=== PATIENT | male | born 1940 | race Caucasian/White ===

== ENCOUNTER 2016-08-04 15:21 | Inpatient (IN) | payer MEDICARE ==
[~2016-08-04] VITALS: Ht 162.6 cm; Wt 79.4 kg
--- NOTE | 2016-08-04 15:30 | NUR ---
aaox3, BBRA FROM STREETS PT ALTERED COVERED IN FECES. Placed on monitor. Resp is even and unlabored with NAD noted. Skin is warm and dry. Dr Cary at BS for eval.
[2016-08-04] MEDS ORDERED: IV NS 0.9% 2,000 ML ONE (15:44)
[2016-08-04] MEDS ORDERED: IV SET PRIMARY 1 EA INFUS.SET MC ONE (15:44)
--- NOTE | 2016-08-04 15:50 | NUR ---
Cleaned the Patient at BS, patient c/o left thigh and hip pain giving him bed bath. Patient unable to move his left leg. Dr Cary made aware.
[2016-08-04] MEDS ORDERED: IV NS 0.9% 1,000 ML BAG IV ONE (16:00)
[2016-08-04 16:08] LABS: HEMATOCRIT 35 % (39-51); HEMOGLOBIN 11.4 g/dL (13.5-17.5); LYMPHOCYTES # (AUTO) 0.4 /CMM (0.8-4.8); LYMPHOCYTES % (AUTO) 1.9 % (20.0-44.0); MEAN CORPUSCULAR HEMOGLOBIN 30 PG (26.0-33.0); MEAN CORPUSCULAR HGB CONC 33 g/dl (31.0-36.0); MEAN CORPUSCULAR VOLUME 89 fL (80-96); MONOCYTES # (AUTO) 1.3 /CMM (0.1-1.30); MONOCYTES % (AUTO) 5.5 % (2.0-12.0); NEUTROPHILS # (AUTO) 21.3 /CMM (1.8-8.9); NEUTROPHILS % (AUTO) 92.6 % (43.0-81.0); PLATELET COUNT (AUTO) 247 /CMM (150-450); RDW COEFFICIENT OF VARIATION 14.3 (11.5-15.0); RED BLOOD CELL COUNT(AUTO) 3.87 MIL/uL (4.5-6.0)
[2016-08-04 16:09] LABS: CALCIUM, SERUM 8.3 mg/dL (8.5-10.1); CARBON DIOXIDE 21 mmol/L (21-32); CHLORIDE 103 mmol/L (98-107); CREATININE 2.4 mg/dL (0.6-1.3); GLUCOSE 169 mg/dL (74-106); POTASSIUM 3.4 mmol/L (3.5-5.1); SODIUM SERUM 141 mmol/L (136-145); UREA NITROGEN, BLOOD 27 mg/dL (7-18)
[2016-08-04 16:15] LABS: ALANINE AMINOTRANSFERASE 10 U/L (12-78); ALBUMIN 2.7 g/dL (3.4-5.0); ALKALINE PHOSPHATASE 91 U/L (46-116); ASPARTATE AMINOTRANSFERASE 18 U/L (15-37); BILIRUBIN,DIRECT 0.2 mg/dL (0.0-0.2); BILIRUBIN,TOTAL 0.8 mg/dL (0.2-1.0); TOTAL PROTEIN, SERUM 6.6 g/dL (6.4-8.2)
[2016-08-04 16:16] LABS: INR 1.09 (0.87-1.13); PROTHROMBIN TIME 11.4 SECS (9.5-12.7)
[2016-08-04 16:17] LABS: TROPONIN I 0.098 ng/mL (0.00-0.056)
[2016-08-04 16:26] LABS: BAND % (MANUAL) 8 % (0.0-5.0); LYMPHOCYTES % (MANUAL) 4 % (16-48); MONOCYTES % (MANUAL) 2 % (0-11.0); NEUTROPHILS % (MANUAL) 86 (42-76); PLATELET ESTIMATE ADEQUATE
[2016-08-04] MEDS ORDERED: PERMETHRIN 5% CRM 60 GM TUBE TP ONE ×2 (16:30)
--- NOTE | 2016-08-04 16:30 | NUR ---
Patient is resting comfortably in bed with eyes closed. Easily aroused. VSS
[2016-08-04 16:45] LABS: SERUM AMMONIA 14 umol/L (11-32)
[2016-08-04 16:46] LABS: LACTIC ACID 7.3 mmol/L (0.4-2.0)
[2016-08-04 16:50] LABS: ALCOHOL, BLOOD < 3 mg/dL (0-0)
[2016-08-04 16:51] LABS: ACETAMINOPHEN 0 ug/ml (10-30)
[2016-08-04] MEDS ORDERED: PIPERACILLIN /TAZOBACTAM 2.25 G in IV D5W 50 ML IV ONE (17:00)
[2016-08-04] MEDS ORDERED: VANCOMYCIN 1 GM in IV D5W 250 ML IV ONE (17:00)
[2016-08-04 17:01] LABS: THYROID STIMULATING HORMONE 0.771 uIU/mL (0.358-3.74)
[2016-08-04] MEDS ORDERED: IV SET PRIMARY PUMP SET 1 EA INFUS.SET MC ONE ×2 (17:15→23:01)
--- NOTE | 2016-08-04 17:24 | NUR ---
CALLED NURSING SUP. FOR [facility] BED, INFORMED HER PT HAS HEAD LICE
--- NOTE | 2016-08-04 18:00 | NUR ---
SEPTIC PROTOCOL FLUID CHALLENGE (30ML/KG) NOT FOLLOWED. PER DR PINA, PATIENT HAS RENAL PROBLEM AND HE DOESN'T WANT TO OVERLOAD WITH FLUIDS.
--- NOTE | 2016-08-04 18:02 | NUR ---
NO FLUID RE-ASSESSMENT --- SEPTIC PROTOCOL FLUID CHALLENGE NOT DONE.
--- NOTE | 2016-08-04 18:26 | NUR ---
SHERON CALLED, SIM LOZOYA ORAL HYGIENIST, TRANSFERRED TO
--- NOTE | 2016-08-04 18:27 | NUR ---
JULIUS PAGED, DR.SAM Mayer NEUROPATHOLOGIST
--- NOTE | 2016-08-04 18:42 | NUR ---
[facility] 108
--- NOTE | 2016-08-04 19:02 | NUR ---
JULIUS HAMMONDS, STEVEN TORO GUMMED TAPE PRESS OPERATOR
--- NOTE | 2016-08-04 19:36 | NUR ---
REPORT GIVEN TO SHEREE ARGUETA FOR [facility]
--- NOTE | 2016-08-04 19:38 | NUR ---
[facility] RN NOTES RECEIVED REPORT FROM KATIA
[2016-08-04 20:00] VITALS: BP 78/37
--- NOTE | 2016-08-04 20:00 | NUR ---
[place] RN INITIAL NOTES RECEIVED PATIENT AWAKE A/OX2 VIA GURNEY. RESPIRATIONS EVEN AND UNLABORED. NOTED WITH EXPIRATORY WHEEZES. ON ROOM AIR. SPO2 92% ON ROOM AIR, 2LPMO2 VIA NC PLACED. PER REPORT GIVEN PERMETHRIN, 2LNS, VANCO, AND ZOSYN. PER REPORT MANY LICE WAS REMOVED FROM PATIENTS HEAD. PATIENT C/O SEVERE PAIN OR LEFT LEG WHEN MOVED. PATIENT GUARDING LEFT LEG. PER PATIENT HE HAS NO KNOWN DRUG ALLERGIES AND DOES NOT TAKE ANY MEDICATIONS. PATIENT IS HOMELESS AND HAS NO FAMILY. PATIENT HAS NO KNOWN PAST MEDICAL HISTORY. NO RECENT IMMUNIZATIONS. ASKED PATIENT REASON FOR VISIT, PATIENT STATED "MY LEGS ARE TOO WEAK, I KEPT FALLING." PATIENT APPEARS TO BE HARD OF HEARING. ASKED PATIENT FOR CODE STATUS, PATIENT WISHES TO BE FULL CODE. BODY ASSESSMENT DONE. PICTURES TAKEN. WITH LFA, RFA, AND LAC 18G PATENT AND INTACT. ON TELE MONITOR AFIB 105. ORIENTED PATIENT TO ROOM AND LOCATION. ORIENTED PATIENT TO CALL LIGHT SYSTEM, VERBALIZED UNDERSTANDING. SIDE RAILS UP AND LOCKED. BED KEPT AT LOWEST POSITION. CALL LIGHT KEPT WITHIN EASY REACH . WILL CONTINUE TO MONITOR.
--- NOTE | 2016-08-04 20:05 | NUR ---
TRANSPORTED PT TO TELE BED
--- NOTE | 2016-08-04 21:00 | NUR ---
BP RECHECKED 101/50, WILL CONTINUE TO MONITOR.
--- NOTE | 2016-08-04 22:33 | NUR ---
STEVEN TORO NP AT BEDSIDE.
[2016-08-04] MEDS ORDERED: IV NS 0.9% 1,000 ML ONE (22:59)
[2016-08-04] MEDS ORDERED: Z GUARD REMEDY 2 OZ OINT TP PRN (23:00)
[2016-08-04] MEDS ORDERED: ONDANSETRON HCL/PF 4 MG/2 ML VIAL IVP PRN (23:00)
[2016-08-04] MEDS ORDERED: ZOLPIDEM TARTRATE 5 MG TABLET PO PRN (23:00)
[2016-08-04] MEDS ORDERED: ACETAMINOPHEN 325 MG TABLET PO PRN (23:00)
[2016-08-04] MEDS ORDERED: MAG HYDROX/AL HYDROX/SIMETH 30 ML UDC PO PRN (23:00)
[2016-08-04] MEDS ORDERED: MAGNESIUM HYDROXIDE 30 ML UDC PO PRN (23:00)
[2016-08-04] MEDS ORDERED: POTASSIUM CHLORIDE 20 MEQ TAB.PRT.SR PO ONE ×2 (23:00→23:06)
[2016-08-04] MEDS ORDERED: HEPARIN SODIUM, PORCINE 5000 UNITS/1 ML VIAL ONE (23:07)
[2016-08-04] MEDS: HEPARIN SODIUM, PORCINE 5000 UNITS/1 ML VIAL SQ SCH (23:11)
[2016-08-04] MEDS: IV NS 0.9% 1,000 ML IV PRN (23:13)
[2016-08-05] VITALS: BP 114/55
[2016-08-05 04:00] VITALS: BP 111/76
[2016-08-05 05:05] LABS: HEMATOCRIT 31 % (39-51); HEMOGLOBIN 10.3 g/dL (13.5-17.5); LYMPHOCYTES # (AUTO) 0.7 /CMM (0.8-4.8); LYMPHOCYTES % (AUTO) 5.1 % (20.0-44.0); MEAN CORPUSCULAR HEMOGLOBIN 30 PG (26.0-33.0); MEAN CORPUSCULAR HGB CONC 33 g/dl (31.0-36.0); MEAN CORPUSCULAR VOLUME 89 fL (80-96); MONOCYTES # (AUTO) 0.7 /CMM (0.1-1.30); NEUTROPHILS # (AUTO) 12.9 /CMM (1.8-8.9); NEUTROPHILS % (AUTO) 89.9 % (43.0-81.0); PLATELET COUNT (AUTO) 217 /CMM (150-450); RDW COEFFICIENT OF VARIATION 14.6 (11.5-15.0); RED BLOOD CELL COUNT(AUTO) 3.46 MIL/uL (4.5-6.0); WHITE BLOOD COUNT (AUTO) 14.4 K/uL (4.3-11.0)
[2016-08-05 05:30] LABS: CALCIUM, SERUM 7.7 mg/dL (8.5-10.1); CREATININE 1.5 mg/dL (0.6-1.3); MAGNESIUM 1.7 mg/dL (1.8-2.4); PHOSPHORUS 3.8 mg/dL (2.5-4.9)
--- NOTE | 2016-08-05 05:39 | NUR ---
GAVE PATIENT FULL BODY BATH, NOTED WITH HEAD LICE, WASHED AND COMBED HAIR. TOLERATED WELL. URINE CULTURE OBTAINED VIA STRAIGHT CATH TOLERATED WELL. WILL CONTINUE TO MONITOR.
[2016-08-05] MEDS ORDERED: IV NS 0.9% 1,000 ML ONE (06:30)
--- NOTE | 2016-08-05 07:00 | NUR ---
[facility] RN INITIAL NOTES Received pt in bed sleeping. no s/s of distress.no c/o pain .i.v cdi and patent.safety measures in place.bed in low and locked position.will continue to monitor for changes for continuity of care.
[2016-08-05 07:35] LABS: APPEARANCE,URINE CLEAR (CLEAR); BILIRUBIN,URINE NEGATIVE (NEGATIVE); BLOOD, URINE TRACE Ery/uL (NEGATIVE); COLOR,URINE YELLOW (YELLOW); KETONES,URINE TRACE (NEGATIVE); LEUKOCYTE ESTERASE ,URINE NEGATIVE (NEGATIVE); NITRITE, URINE NEGATIVE (NEGATIVE); PROTEIN,URINE 1+ mg/dl (NEGATIVE); UGLUCOSE NEGATIVE (NEGATIVE); UROBILINOGEN,URINE 0.2 EU/dL (0.2)
[2016-08-05 07:44] LABS: ADD URINE CULTURE NO; BACTERIA,URINE Few /HPF (None Seen); HYALINE CASTS, URINE Few /LPF (None Seen); SQUAMOUS EPITHELIAL CELL,UR Rare /HPF (None Seen); WBC,URINE 0-2 /HPF (0-3)
--- NOTE | 2016-08-05 07:44 | NUR ---
[place] RN CLOSING NOTES ALL NEEDS ANTICIPATED AND MET. KEPT CLEAN AND DRY. DENIES SOB. DENIES ANY PAIN OR DISCOMFORT. ISOLATION PRECAUTIONS OBSERVED. IVF RUNNING. AFEBRILE. SIDE RAILS UP AND LOCKED. BED KEPT AT LOWEST POSITION. CALL LIGHT KEPT WITHIN EASY REACH. CONTINUITY OF CARE ENDORSED TO AM NURSE.
[2016-08-05 07:45] LABS: MUCUS,URINE Rare /LPF (None Seen)
[2016-08-05 08:00] VITALS: BP 135/56
--- NOTE | 2016-08-05 08:27 | NUR ---
WOUND CARE CONSULT: PT PRESENTS WITH MULTIPLE DRY LESIONS AND SCRATCHES. DEBRIS NOTED IN HAIR. SWELLING NOTED TO LEFT HIP AREA. REDNESS NOTED TO LOWER LEGS. RECOMMENDATIONS MADE FOR SKIN PROTECTION. DISCUSSED WITH NURSING STAFF. DEFER TO MD FOR DRY LESIONS ON FACE AND HEAD. PT ON ISOFLEX MATTRESS. PT TO BE TURNED AND REPOSITIONED EVERY 2 HRS PT CONDITION PERMITS, HEELS FLOATED. LIMITED ASSESSMENT TODAY DUE TO PT UNABLE TO TURN TO SIDE (REFUSED). NA SCORE IS 13. MD IN AGREEMENT WITH PLAN OF CARE. Addendum: 08/05/16 at 0831 by CAROLINA ESTRADA WNDNU Amended: Links added.
[2016-08-05] MEDS ORDERED: FEE PK DOSING 1 MIN EA MC ONE (09:13)
[2016-08-05] MEDS: PIPERACILLIN /TAZOBACTAM 3.375 G in IV D5W 50 ML IV SCH ×3 (09:15→21:14)
[2016-08-05] MEDS ORDERED: SECONDARY IV SET 1 EA INFUS.SET MC ONE ×3 (09:17→15:51)
[2016-08-05] MEDS: HEPARIN SODIUM, PORCINE 5000 UNITS/1 ML VIAL SQ SCH ×2 (09:19→20:50)
[2016-08-05] MEDS: PANTOPRAZOLE 40 MG TABLET.DR PO SCH (09:26)
[2016-08-05] MEDS: VANCOMYCIN 1 GM in IV D5W 250 ML IV SCH (11:15)
[2016-08-05] MEDS: Magnesium 1GM/D5W 100ML PREMIX 100 ML IV SCH ×2 (11:15→12:09)
[2016-08-05 13:34] VITALS: BP 122/56
--- NOTE | 2016-08-05 14:18 | NUR ---
YESSICA contacted missing persons and left a voicemail message requesting a call back. Addendum: 08/05/16 at 1519 by SUNNY JUAN YESSICA called missing persons and spoke to Officer Yomi who informed YESSICA that pt. has not been listed as missing and no missing persons has been filed on pt. YESSICA updated HEMALATHA De Anda with the aforementioned information.
[2016-08-05 20:00] VITALS: BP 97/50
--- NOTE | 2016-08-05 20:50 | NUR ---
RN NOTES: PAGED HEMALATHA HARRIS REGARDING THE PATIENT'S DOSE OF HEPARIN OF 5000 UNIT S/C. AND THE SURGERY THAT IS PLANNED FOR THE PATIENT TOMORROW. LEONARD ORDERED TO HOLD THE DOSE. WILL CARRY OUT THE ORDER AND CONTINUE TO MONITOR.
[2016-08-05] MEDS: IV NS 0.9% 1,000 ML IV PRN (21:14)
[2016-08-06] VITALS (11 sets, daily range): BP systolic 104–147; BP diastolic 53–76
[2016-08-06] MEDS: PIPERACILLIN /TAZOBACTAM 3.375 G in IV D5W 50 ML IV SCH ×5 (02:50→22:01)
[2016-08-06] MEDS: VANCOMYCIN 1 GM in IV D5W 250 ML IV SCH (05:32)
[2016-08-06 06:31] LABS: BASOPHILS % (AUTO) 0.2 % (0.0-2.0); EOSINOPHILS # (AUTO) 0.1 /CMM (0.0-0.7); EOSINOPHILS % (AUTO) 1.8 % (0.0-6.0); HEMATOCRIT 29 % (39-51); HEMOGLOBIN 9.6 g/dL (13.5-17.5); LYMPHOCYTES # (AUTO) 0.8 /CMM (0.8-4.8); LYMPHOCYTES % (AUTO) 9.3 % (20.0-44.0); MEAN CORPUSCULAR HEMOGLOBIN 30 PG (26.0-33.0); MEAN CORPUSCULAR HGB CONC 33 g/dl (31.0-36.0); MEAN CORPUSCULAR VOLUME 90 fL (80-96); MONOCYTES # (AUTO) 0.5 /CMM (0.1-1.30); MONOCYTES % (AUTO) 6.6 % (2.0-12.0); NEUTROPHILS # (AUTO) 6.8 /CMM (1.8-8.9); NEUTROPHILS % (AUTO) 82.1 % (43.0-81.0); PLATELET COUNT (AUTO) 214 /CMM (150-450); RDW COEFFICIENT OF VARIATION 14.6 (11.5-15.0); RED BLOOD CELL COUNT(AUTO) 3.22 MIL/uL (4.5-6.0); WHITE BLOOD COUNT (AUTO) 8.3 K/uL (4.3-11.0)
[2016-08-06 06:47] LABS: TROPONIN I 0.108 ng/mL (0.00-0.056)
[2016-08-06 06:52] LABS: BILIRUBIN,TOTAL 0.3 mg/dL (0.2-1.0); CREATININE 1.1 mg/dL (0.6-1.3); MAGNESIUM 1.9 mg/dL (1.8-2.4); PHOSPHORUS 2.7 mg/dL (2.5-4.9); POTASSIUM 3.6 mmol/L (3.5-5.1); TOTAL PROTEIN, SERUM 5.5 g/dL (6.4-8.2)
[2016-08-06] MEDS: PANTOPRAZOLE 40 MG TABLET.DR PO SCH (08:30)
[2016-08-06] MEDS ORDERED: SECONDARY IV SET 1 EA INFUS.SET MC ONE ×3 (08:56→20:38)
[2016-08-06] MEDS: HEPARIN SODIUM, PORCINE 5000 UNITS/1 ML VIAL SQ SCH ×2 (09:00→22:07)
--- NOTE | 2016-08-06 09:30 | NUR ---
MS RN NOTE Pt resting in bed. AOx2. NS running at 125ml/hr in left forearm. Ate breakfast. NPO starting at 0830 and held heparin for possible surgery today. Scabs left shoulder. BLE redness. All needs met. Will cont to monitor. Addendum: 08/06/16 at 1823 by VAL BORRERO RN Pt refused turning due to pain in left hip.
[2016-08-06 12:01] LABS: IRON, SERUM 11 ug/dl (50-175); TOTAL IRON BINDING CAPACITY 222 ug/dl (250-450)
[2016-08-06 12:09] LABS: FERRITIN 63 ng/mL (8-388)
[2016-08-06] MEDS: POTASSIUM CL. PREMIX PERIPHER. 50 ML IV SCH ×2 (12:31→14:07)
[2016-08-06] MEDS ORDERED: BUPIVACAINE 0.5 % PF 150 MG/30 ML VIAL ONE (16:11)
[2016-08-06] MEDS ORDERED: BACITRACIN 50000 UNITS/VIAL ONE (16:11)
--- NOTE | 2016-08-06 16:39 | NUR ---
LEFT FOR OR Pt left for OR around 1630 for left hip ORIF. Pt pulled out right forearm and left forearm IV sites, left AC site infiltrated. New one placed right wrist #22g, but pt left for OR before being able to run zosyn into new IV site.
[2016-08-06] MEDS ORDERED: MIDAZOLAM HCL 2 MG/2ML VIAL ONE (18:00)
[2016-08-06] MEDS ORDERED: FENTANYL PF 100MCG/2ML AMPUL ONE (18:00)
[2016-08-06] MEDS ORDERED: ANESTHESIA TRAY IN PYXIS 1 EA TRAY MC ONE (19:11)
[2016-08-06] MEDS ORDERED: IV NS 0.9% 1,000 ML ONE (19:30)
--- NOTE | 2016-08-06 19:50 | NUR ---
MS RN POST OP NOTES: PATIENT BROUGHT BACK TO MS FLOOR VIA GURNEY, ON O2 AT 2 LPM VIA NC. BREATHING EVEN AND UNLABORED, NOTED OCCASIONAL NON PRODUCTIVE COUGH. BREATH SOUNDS CLEAR AT UPPER LUNG CLEMENT, SLIGHTLY DIMINISHED OVER LOWER CLEMENT. PATIENT IS AOX2, ABLE TO FOLLOW COMMANDS. APPEARS CALM AND IN NO DISTRESS. DENIES PAIN AT THIS TIME, ONLY ASKED FOR SOMETHING TO EAT. PIV ACCESS OVER R WIRST G 22 INTACT AND PATENT TO FLUSH. LEFT HJIP NOTED TO HAVE 2 FOAM DRESSINGS, CLEAN AND INTACT. PROVIDED FOR COMFORT AND SAFETY. WILL CONT TO MONITOR.
[2016-08-06] MEDS ORDERED: IV SET PRIMARY PUMP SET 1 EA INFUS.SET MC ONE (20:38)
[2016-08-06] MEDS: CEFAZOLIN 2 GM in IV D5W 50 ML IV SCH (20:47)
[2016-08-06] MEDS: IV NS 0.9% 1,000 ML IV PRN (20:47)
--- NOTE | 2016-08-06 22:00 | NUR ---
RN NOTES: ASKED INFORMATION SERVICES ASSISTANT SOUND EDITOR, STEVEN TORO, IF HEPARIN 5000 UNITS SQ THAT IS SCHEDULED FOR 2100 PM SHOULD BE HELD, PATIENT HAS JUST BEEN TRANSFERRED BACK TO UNIT POST OP FOR ORIF OF LEFT HIP. PER INFORMATION SERVICES ASSISTANT, HEPARIN MUST BE CONTINUED. NOTED AND CARRIED OUT. WILL CONT TO MONITOR.
[2016-08-07] VITALS (12 sets, daily range): BP systolic 107–133; BP diastolic 53–78
--- NOTE | 2016-08-07 00:30 | NUR ---
RN NOTES: VANCO TROUGH AT 9 ONLY, ADMINISTERED VANCOMYCIN 1 GM IV SCHEDULED. WILL CONT TO MONITOR.
[2016-08-07] MEDS: VANCOMYCIN 1 GM in IV D5W 250 ML IV SCH ×2 (00:39→12:00)
--- NOTE | 2016-08-07 00:45 | NUR ---
RN NOTES: PATIENT COMPLAINING OF 4/10 PAIN OVER L HIP AND ITCHING OVER LEGS. STEVEN TORO NP MADE AWARE, ORDERED FOR BENADRYL 25 MG PO Q 6 HRS PRN. ORDER NOTED AND CARRIED OUT. WILL CONT TO MONITOR.
[2016-08-07] MEDS ORDERED: diphenhydrAMINE HCL 25 MG CAPSULE ONE (00:47)
[2016-08-07] MEDS: HYDROCODONE/APAP 5/325MG 1 EACH TABLET PO PRN ×4 (00:56→20:41)
[2016-08-07] MEDS ORDERED: diphenhydrAMINE HCL ELIX 25 MG/10 ML UDC PO PRN (01:00)
[2016-08-07] MEDS: diphenhydrAMINE HCL 25 MG CAPSULE PO PRN (01:06)
[2016-08-07] MEDS: PIPERACILLIN /TAZOBACTAM 3.375 G in IV D5W 50 ML IV SCH ×4 (03:04→20:41)
[2016-08-07] MEDS: CEFAZOLIN 2 GM in IV D5W 50 ML IV SCH ×2 (04:00→12:00)
[2016-08-07 06:21] LABS: HEMATOCRIT 26 % (39-51); HEMOGLOBIN 8.2 g/dL (13.5-17.5); LYMPHOCYTES # (AUTO) 0.4 /CMM (0.8-4.8); LYMPHOCYTES % (AUTO) 6.5 % (20.0-44.0); MEAN CORPUSCULAR HEMOGLOBIN 29 PG (26.0-33.0); MEAN CORPUSCULAR HGB CONC 32 g/dl (31.0-36.0); MEAN CORPUSCULAR VOLUME 90 fL (80-96); MONOCYTES # (AUTO) 0.3 /CMM (0.1-1.30); MONOCYTES % (AUTO) 5.5 % (2.0-12.0); PLATELET COUNT (AUTO) 209 /CMM (150-450); RDW COEFFICIENT OF VARIATION 14.1 (11.5-15.0); RED BLOOD CELL COUNT(AUTO) 2.83 MIL/uL (4.5-6.0); WHITE BLOOD COUNT (AUTO) 5.7 K/uL (4.3-11.0)
--- NOTE | 2016-08-07 06:30 | NUR ---
MS RN CLOSING NOTES: PATIENT IN BED, AOX2, ON O2 AT 2 LPM VIA NC. BREATHING EVEN AND UNLABORED. APPEARS CALM AND IN NO DISTRESS. PIV ACCESS OVER R WRIST G 22 INTACT AND PATENT, INFUSING WELL WITH NS RUNNING AT 125 ML/HR, NO SIGNS OF INFILTRATION NOTED. DUE MEDS GIVEN. MORNING CARE RENDERED. REINFORCED DRESSING OVER LEFT HIP SMALLER (INFERIOR) DRESSING WAS SATURATED WITH BLOOD. PROVIDED FOR COMFORT AND SAFETY. ON CONTACT ISOLATION FOR SCABIES/ LICE. NO ACUTE CHANGE IN CONDITION NOTED THROUGH SHIFT. WILL ENDORSE TO AM RN FOR ALTA.
[2016-08-07 06:39] LABS: ALBUMIN 1.9 g/dL (3.4-5.0); BILIRUBIN,TOTAL 0.2 mg/dL (0.2-1.0); CALCIUM, SERUM 7.8 mg/dL (8.5-10.1); CREATININE 1.1 mg/dL (0.6-1.3); MAGNESIUM 1.7 mg/dL (1.8-2.4); PHOSPHORUS 3.4 mg/dL (2.5-4.9); POTASSIUM 3.9 mmol/L (3.5-5.1); TOTAL PROTEIN, SERUM 5.3 g/dL (6.4-8.2)
[2016-08-07] MEDS: PANTOPRAZOLE 40 MG TABLET.DR PO SCH (09:31)
[2016-08-07] MEDS: HEPARIN SODIUM, PORCINE 5000 UNITS/1 ML VIAL SQ SCH (09:33)
[2016-08-07] MEDS: IV NS 0.9% 1,000 ML IV PRN (09:46)
[2016-08-07] MEDS ORDERED: SEVOFLURANE 250 ML BOTTLE IH ONE (09:50)
[2016-08-07] MEDS ORDERED: DESFLURANE 240 ML BOTTLE IH ONE (09:50)
[2016-08-07] MEDS ORDERED: Magnesium 1GM/D5W 100ML PREMIX 100 ML IV SCH ×2 (10:00→14:30)
--- NOTE | 2016-08-07 16:50 | NUR ---
patient s heplock in right hand was infiltrated from awake overnight monitor , ice bags applied and unable to hang remaing ivp antibiotics until line in 2 units of prbc s ordered for hgb off 8.2
--- NOTE | 2016-08-07 17:51 | NUR ---
dr. TERAN IN TOO SEE PATIENT AND ORDERED DUE TO UNABILITY TO FIND PERIPERAL VEIN, DR SAINI ORDEREDA MIDLINE INSERTION DUE TO MULTIPLE ABT AND BLOOD TO BE GIVEN, c SMOOTH NURSING CAR SALESPERSON OF THE NEED FOR MIDLINE INSERTION NEEDEDSO WAITING FOR RESPONSE.
--- NOTE | 2016-08-07 18:30 | NUR ---
PT S DRESSING DRY ON BOTTOM PART OF LEFT HIP AND HAS A SMALL STAIN DRIED OF DARK RED DRAINAGE. MEDICATED FOR PAIN WITH NORCO TIMES 1 WITH GOOD EFFECT, PARALEGAL INTERNSHIP STSTED PT REFUSED TO BE CLEANED UP AT END OF SHIFT .SIDE RAILS UP WITH CALL LIGHT IN REACH
--- NOTE | 2016-08-07 20:14 | NUR ---
RN NOTES: NEW MIDLINE IS ESTABLISHED IN LEFT ARM GAUGE 20. PATENT AND INTACT. NEW IV ACCESS IS ESTABLISHED IN LEFT WRIST GAUGE 22. PATENT AND INTACT.
--- NOTE | 2016-08-07 20:59 | NUR ---
RN NOTES: PATIENT'S DRESSING ON THE LEFT HIP IS DRY AND PART PF THE DRESSING ON THE BOTTOM HAS A SMALL STAIN DRIED OF DARK RED DRAINAGE. WILL CONTINUE TO MONITOR.
[2016-08-07] MEDS: ENOXAPARIN SODIUM 40 MG/0.4 ML DISP.SYRIN SQ SCH (21:13)
[2016-08-07] MEDS ORDERED: BLOOD IV SET 1 EA INFUS.SET MC ONE (21:26)
[2016-08-07] MEDS ORDERED: IV NS 0.9% 250 ML IV ONE (21:27)
--- NOTE | 2016-08-07 21:58 | NUR ---
RN NOTES: 2149: ONE UNIT OF BLOOD IS STARTED. VARIFIED WITH CHARGE NURSE ORDERED. Addendum: 08/07/16 at 2256 by RICCO MORENO RN RN NOTES: 2149: ONE UNIT OF BLOOD IS STARTED. VARIFIED WITH CHARGE NURSE ORDERED. PATIENT IS IN A STABLE CONDITION. NO DISTRESS OR COMPLICATIONS NOTED. WILL CONTINUE TO MONITOR.
[2016-08-08 00:35] VITALS: BP 127/75
--- NOTE | 2016-08-08 00:37 | NUR ---
RN NOTES: 0035: BLOOD TRANSFUSION IS COMPLETED. NO BLOOD TRANSFUSION REACTIONS. PATIENT IS IN A STABLE CONDITION. NO COMPLAINS OF PAIN. WILL CONTINUE TO MONITOR.
[2016-08-08] MEDS: VANCOMYCIN 1 GM in IV D5W 250 ML IV SCH ×2 (01:23→15:08)
[2016-08-08] MEDS: PIPERACILLIN /TAZOBACTAM 3.375 G in IV D5W 50 ML IV SCH ×4 (02:58→20:14)
[2016-08-08] MEDS: HYDROCODONE/APAP 5/325MG 1 EACH TABLET PO PRN ×2 (03:41→18:28)
[2016-08-08 04:00] VITALS: BP 129/67
[2016-08-08 07:01] LABS: CALCIUM, SERUM 7.7 mg/dL (8.5-10.1); POTASSIUM 4.2 mmol/L (3.5-5.1)
[2016-08-08 08:00] VITALS: BP 134/75
--- NOTE | 2016-08-08 08:00 | NUR ---
AM RN NOTES RECEIVED PT IN BED, SLEEPING, EASY TO AWAKE, NO SOB OR DISTRESS NOTED, NO PAIN AT THIS TIME, WILL MONITOR.
[2016-08-08] MEDS: PANTOPRAZOLE 40 MG TABLET.DR PO SCH (08:19)
[2016-08-08 08:37] VITALS: BP 134/75
--- NOTE | 2016-08-08 11:00 | NUR ---
PT REFUSED VANCO TROUGH X2, STATED: " I DO NOT CARE, I'M NOT GIVING ANY BLOOD, GO AWAY." RISKS AND BENEFITS OT REFUSAL DISCUSSED WITH PT, WILL TRY LATER, PHARMACY INFORMED.
--- NOTE | 2016-08-08 11:20 | NUR ---
PARUL OLIVASP INFORMED ABOUT PT'S REFUSAL OF VANCO TROUGH, PER PARUL TO WAIT TILL FURTHER ORDERS, HE WILL COME TO SEE PT FIRST.
--- NOTE | 2016-08-08 14:00 | NUR ---
PT SEEN BY PARUL CLARK, OKAY TO GIVE DOSE OF VANCOMYCIN NOW AND VANCO TROUGH BEFORE NEXT DOSE, SPOKE WITH PHARMACY TO RESCHEDULE 1200 VANCO DOSE FOR NOW.
[2016-08-08] MEDS: SOD FERRIC GLUC 125 MG in IV NS 0.9% 100 ML IV SCH (14:20)
[2016-08-08 16:00] VITALS: BP 128/68
--- NOTE | 2016-08-08 18:34 | NUR ---
PRESCRIBED NORCO WAS GIVEN FOR PAIN. BARCODE COULD NOT BE SCANNED. MANUALLY ENTERED. CONFIRMED BY MY PRECEPTOR (MELLO)
--- NOTE | 2016-08-08 18:48 | NUR ---
PT IN STABLE CONDITION, NO SOB OR DISTRESS NOTED, SEEN BY ORTHO PA AND DRESSING CHANGE DONE ON LT HIP, NO BLEEDING NOTED, PT NONCOMPLIANT WITH ADL (CHANGING LINENS AND DIAPER) RISKS AND BENEFITS OF REFUSAL DISCUSSED AND PMD INFORMED WELL, WILL INDORSE PT TO NEXT SHIFT FOR ALTA.
[2016-08-08 20:00] VITALS: BP 120/60
[2016-08-08] MEDS: ENOXAPARIN SODIUM 40 MG/0.4 ML DISP.SYRIN SQ SCH (20:15)
[2016-08-08] MEDS ORDERED: SECONDARY IV SET 1 EA INFUS.SET MC ONE (20:20)
[2016-08-09] MEDS: PIPERACILLIN /TAZOBACTAM 3.375 G in IV D5W 50 ML IV SCH ×4 (03:20→21:09)
[2016-08-09 04:00] VITALS: BP 151/95
[2016-08-09] MEDS: VANCOMYCIN 1 GM in IV D5W 250 ML IV SCH ×2 (04:13→16:57)
[2016-08-09] MEDS: HYDROCODONE/APAP 5/325MG 1 EACH TABLET PO PRN ×2 (04:58→15:04)
[2016-08-09 07:29] LABS: BASOPHILS % (AUTO) 0.1 % (0.0-2.0); EOSINOPHILS # (AUTO) 0.2 /CMM (0.0-0.7); EOSINOPHILS % (AUTO) 2.6 % (0.0-6.0); HEMATOCRIT 28 % (39-51); HEMOGLOBIN 9.2 g/dL (13.5-17.5); LYMPHOCYTES # (AUTO) 1.2 /CMM (0.8-4.8); LYMPHOCYTES % (AUTO) 15.2 % (20.0-44.0); MEAN CORPUSCULAR HEMOGLOBIN 29 PG (26.0-33.0); MEAN CORPUSCULAR HGB CONC 33 g/dl (31.0-36.0); MEAN CORPUSCULAR VOLUME 89 fL (80-96); MONOCYTES # (AUTO) 0.8 /CMM (0.1-1.30); MONOCYTES % (AUTO) 10.7 % (2.0-12.0); NEUTROPHILS # (AUTO) 5.5 /CMM (1.8-8.9); NEUTROPHILS % (AUTO) 71.4 % (43.0-81.0); PLATELET COUNT (AUTO) 272 /CMM (150-450); RDW COEFFICIENT OF VARIATION 14.6 (11.5-15.0); RED BLOOD CELL COUNT(AUTO) 3.17 MIL/uL (4.5-6.0); WHITE BLOOD COUNT (AUTO) 7.6 K/uL (4.3-11.0)
[2016-08-09 07:42] LABS: CALCIUM, SERUM 8.1 mg/dL (8.5-10.1); CREATININE 0.9 mg/dL (0.6-1.3); POTASSIUM 4.7 mmol/L (3.5-5.1)
--- NOTE | 2016-08-09 08:01 | NUR ---
RN CLOSING NOTE PT REMAINS IN NO ACUTE DISTRESS IN BED. PT DID NOT HAVE ANY SIGNIFICANT CHANGE IN CONDITION DURING SHIFT. WILL ENDORSE CARE TO AM RN FOR CONTINUITY OF CARE. ALL NEEDS MET ALL ORDERS CARRIED OUT.
[2016-08-09] MEDS: PANTOPRAZOLE 40 MG TABLET.DR PO SCH (09:25)
[2016-08-09] MEDS: IV NS 0.9% 1,000 ML IV PRN (09:35)
[2016-08-09 12:00] VITALS: BP 151/95
[2016-08-09] MEDS: SOD FERRIC GLUC 125 MG in IV NS 0.9% 100 ML IV SCH (14:47)
[2016-08-09 20:00] VITALS: BP_SYST 142; BP_SYST 159; BP_DIAS 77
[2016-08-09] MEDS: ENOXAPARIN SODIUM 40 MG/0.4 ML DISP.SYRIN SQ SCH (20:38)
[2016-08-09] MEDS ORDERED: IV NS 0.9% 250 ML IV ONE (23:43)
[2016-08-10] MEDS: diphenhydrAMINE HCL 25 MG CAPSULE PO PRN (00:58)
[2016-08-10] MEDS: HYDROCODONE/APAP 5/325MG 1 EACH TABLET PO PRN ×2 (00:59→19:55)
[2016-08-10 04:00] VITALS: BP 172/76
[2016-08-10] MEDS: VANCOMYCIN 1 GM in IV D5W 250 ML IV SCH ×2 (04:13→15:51)
[2016-08-10] MEDS: PIPERACILLIN /TAZOBACTAM 3.375 G in IV D5W 50 ML IV SCH ×4 (04:15→20:00)
--- NOTE | 2016-08-10 07:34 | NUR ---
MS RN NOTE REPORT RECEIVED FROM PHARMACOGNOSIST NURSE. PT RESTING COMFORTABLY IN BED, WITH NO APPARENT DISTRESS. DENIES COMPLAINTS AT THIS TIME. WILL CONTINUE TO MONITOR.
[2016-08-10 08:00] VITALS: BP 137/76
[2016-08-10] MEDS: PANTOPRAZOLE 40 MG TABLET.DR PO SCH (08:50)
[2016-08-10] MEDS: SOD FERRIC GLUC 125 MG in IV NS 0.9% 100 ML IV SCH (14:07)
[2016-08-10 16:00] VITALS: BP 121/77
--- NOTE | 2016-08-10 18:35 | NUR ---
MS RN NOTE PT RESTING COMFORTABLY, WITH NO APPARENT DISTRESS. PT ON 4L NC, NO SOB. WILL ENDORSE TO TREE SCOUT NURSE FOR ALTA.
--- NOTE | 2016-08-10 19:30 | NUR ---
MS RN INITIAL NOTES RECEIVED PATIENT AWAKE, A/OX2, ABLE TO MAKE NEEDS KNOWN. C/O 12/07 LEFT LEG PAIN. DENIES SOB. NO RESPIRATORY DISTRESS NOTED, WITH 2LPMO2 VIA NC. WITH VLADIMIR MIDLINE PATENT AND INTACT. SIDE RAILS UP AND LOCKED. BED KEPT AT LOWEST POSITION. CALL LIGHT KEPT WITHIN EASY REACH. WILL CONTINUE TO MONITOR.
[2016-08-10] MEDS: ENOXAPARIN SODIUM 40 MG/0.4 ML DISP.SYRIN SQ SCH (19:58)
[2016-08-10 20:00] VITALS: BP 107/66
[2016-08-11] MEDS ORDERED: IV SET PRIMARY PUMP SET 1 EA INFUS.SET MC ONE (03:32)
[2016-08-11] MEDS ORDERED: IV NS 0.9% 250 ML IV ONE (03:32)
[2016-08-11] MEDS: VANCOMYCIN 1 GM in IV D5W 250 ML IV SCH ×2 (03:41→15:31)
[2016-08-11] MEDS: PIPERACILLIN /TAZOBACTAM 3.375 G in IV D5W 50 ML IV SCH ×2 (03:41→08:49)
[2016-08-11 04:00] VITALS: BP 144/78
[2016-08-11] MEDS: HYDROCODONE/APAP 5/325MG 1 EACH TABLET PO PRN ×2 (06:29→13:55)
--- NOTE | 2016-08-11 06:58 | NUR ---
MS RN CLOSING NOTES NO SIGNIFICANT CHANGES OVERNIGHT. PAIN MANAGED NEEDED. KEPT CLEAN AND DRY. ALL NEEDS ANTICIPATED AND MET. ISOLATION PRECAUTIONS OBSERVED. NO RESPIRATORY DISTRESS NOTED. AFEBRILE. SIDE RAILS UP AND LOCKED. BED KEPT AT LOWEST POSITION. CALL LIGHT KEPT WITHIN EASY REACH. WILL CONTINUE TO MONITOR.
[2016-08-11 06:59] LABS: BASOPHILS % (AUTO) 0.2 % (0.0-2.0); EOSINOPHILS # (AUTO) 0.3 /CMM (0.0-0.7); EOSINOPHILS % (AUTO) 3.1 % (0.0-6.0); HEMATOCRIT 27 % (39-51); LYMPHOCYTES # (AUTO) 1.1 /CMM (0.8-4.8); LYMPHOCYTES % (AUTO) 12.5 % (20.0-44.0); MEAN CORPUSCULAR HEMOGLOBIN 29 PG (26.0-33.0); MEAN CORPUSCULAR HGB CONC 33 g/dl (31.0-36.0); MEAN CORPUSCULAR VOLUME 89 fL (80-96); MONOCYTES # (AUTO) 0.4 /CMM (0.1-1.30); MONOCYTES % (AUTO) 4.3 % (2.0-12.0); NEUTROPHILS # (AUTO) 6.8 /CMM (1.8-8.9); NEUTROPHILS % (AUTO) 79.9 % (43.0-81.0); PLATELET COUNT (AUTO) 277 /CMM (150-450); RDW COEFFICIENT OF VARIATION 14.6 (11.5-15.0); RED BLOOD CELL COUNT(AUTO) 3.06 MIL/uL (4.5-6.0); WHITE BLOOD COUNT (AUTO) 8.5 K/uL (4.3-11.0)
[2016-08-11 08:00] VITALS: BP 144/70
[2016-08-11] MEDS: PANTOPRAZOLE 40 MG TABLET.DR PO SCH (08:49)
[2016-08-11] MEDS: SOD FERRIC GLUC 125 MG in IV NS 0.9% 100 ML IV SCH (14:10)
[2016-08-11 16:00] VITALS: BP 148/67
--- NOTE | 2016-08-11 19:30 | NUR ---
MS RN INITIAL NOTES RECEIVED PATIENT AWAKE A/OX2, ABLE TO MAKE NEEDS KNOWN. C/O 07/10 HEADACHE. NO RESPIRATORY DISTRESS NOTED, WITH 2LPMO2 VIA NC. DENIES SOB. SKIN WARM AND DRY TO TOUCH. WITH VLADIMIR MIDLINE TKO PATENT AND INTACT. USING URINAL. DRESSING SITE CLEAN AND DRY. HOB ELEVATED. SIDE RAILS UP AND LOCKED. BED KEPT AT LOWEST POSITION. ISOLATION PRECAUTIONS OBSERVED. CALL LIGHT KEPT WITHIN EASY REACH. WILL CONTINUE TO MONITOR.
[2016-08-11 20:00] VITALS: BP 140/78
[2016-08-11] MEDS: SULFAMETH/TRIMETH 800/160 MG 1 UDTAB TABLET PO SCH (20:41)
[2016-08-11] MEDS: ENOXAPARIN SODIUM 40 MG/0.4 ML DISP.SYRIN SQ SCH (20:46)
[2016-08-12] MEDS: VANCOMYCIN 1 GM in IV D5W 250 ML IV SCH (03:36)
[2016-08-12 04:00] VITALS: BP 145/68
--- NOTE | 2016-08-12 07:09 | NUR ---
MS RN CLOSING NOTES NO SIGNIFICANT CHANGES OVERNIGHT. ALL NEEDS ANTICIPATED AND MET. ABLE TO MAKE NEEDS KNOWN. KEPT CLEAN AND DRY. NO RESPIRATORY DISTRESS NOTED. SKIN WARM AND DRY TO TOUCH. ISOLATION PRECAUTIONS OBSERVED. WITH VLADIMIR MIDLINE PATENT AND INTACT. HOB ELEVATED. SIDE RAILS UP AND LOCKED. NO C/O LEG PAIN. BED KEPT AT LOWEST POSITION. CALL LIGHT KEPT WITHIN EASY REACH. WILL ENDORSE CONTINUITY OF CARE TO AM NURSE.
[2016-08-12 08:00] VITALS: BP_SYST 139; BP_DIAS 74; BP_DIAS 79
[2016-08-12] MEDS: SULFAMETH/TRIMETH 800/160 MG 1 UDTAB TABLET PO SCH ×2 (09:14→20:49)
[2016-08-12] MEDS: PANTOPRAZOLE 40 MG TABLET.DR PO SCH (09:15)
[2016-08-12] MEDS ORDERED: SECONDARY IV SET 1 EA INFUS.SET MC ONE (14:50)
[2016-08-12] MEDS: SOD FERRIC GLUC 125 MG in IV NS 0.9% 100 ML IV SCH (14:54)
--- NOTE | 2016-08-12 19:30 | NUR ---
MS RN INITIAL NOTES RECEIVED PT IN LOW BED. A/O X2. ABLE TO MAKE SOME NEEDS KNOWN. ON 2L OF O2 AND SATING WELL. NO S/S OF RESPIRATORY DISTRESS NOTED. IV VLADIMIR MIDLINE CLEAN DRY AND INTACT, FLUSHING WELL. ISOLATION PRECAUTIONS OBSERVED. NO C/O PAIN AT THIS TIME. BED IN LOWEST POSITION, LOCKED IN PLACE AND BED ALARM ON. CALL LIGHT WITHIN EASY REACH. ALL SAFETY MEASURES IN PLACE. WILL CONTINUE TO MONITOR.
[2016-08-12 20:00] VITALS: BP 144/76
[2016-08-12] MEDS: ENOXAPARIN SODIUM 40 MG/0.4 ML DISP.SYRIN SQ SCH (20:49)
[2016-08-13 04:00] VITALS: BP 139/72
[2016-08-13] MEDS: PANTOPRAZOLE 40 MG TABLET.DR PO SCH ×2 (06:37→08:11)
--- NOTE | 2016-08-13 06:40 | NUR ---
MS RN CLOSING NOTE PT REMAINED IN STABLE CONDITION DURING SHIFT. NO C/O PAIN NOTED. BED IN LOWEST POSITION, BED ALARM ON, BRAKES ON. CALL LIGHT WITHIN REACH AT ALL TIMES. ALL SAFETY MEASURES IN PLACE. ISOLATION PRECAUTIONS OBSERVED. WILL ENDORSE TO NEXT SHIFT FOR ALTA.
--- NOTE | 2016-08-13 07:45 | NUR ---
RN INTIAL NOTES RECEIVED PT FROM PM SHIFT. PT RESTING COMFORTABLY A/OX ABLE TO FOLLW COMMANDS. MED SURG, IV FLUSHED/ PATENT GINA MIDLINE NS TKO. NC @ 2L TOLERATING WELL.PT COMPLAINED OF LEFT LEG PAIN 7 WILL FURTHER ASSESS. PT REPOSITIONED FOR SAFETY AND COMFORT.PT KEPT WARM AND DRY. BED RAIL UP, BED LOCKED AND LOW AND CALL LIGHT WITH IN REACH. WILL CONTINUE TO MONITOR CLOSELY.
[2016-08-13 08:00] VITALS: BP 149/74
[2016-08-13] MEDS: SULFAMETH/TRIMETH 800/160 MG 1 UDTAB TABLET PO SCH ×2 (08:13→20:28)
[2016-08-13] MEDS: HYDROCODONE/APAP 5/325MG 1 EACH TABLET PO PRN (08:13)
[2016-08-13 08:19] LABS: EOSINOPHILS # (AUTO) 0.2 /CMM (0.0-0.7); EOSINOPHILS % (AUTO) 2.6 % (0.0-6.0); HEMATOCRIT 30 % (39-51); HEMOGLOBIN 9.8 g/dL (13.5-17.5); LYMPHOCYTES % (AUTO) 11.2 % (20.0-44.0); MEAN CORPUSCULAR HEMOGLOBIN 29 PG (26.0-33.0); MEAN CORPUSCULAR HGB CONC 33 g/dl (31.0-36.0); MEAN CORPUSCULAR VOLUME 88 fL (80-96); MONOCYTES # (AUTO) 0.8 /CMM (0.1-1.30); MONOCYTES % (AUTO) 8.8 % (2.0-12.0); NEUTROPHILS # (AUTO) 7.2 /CMM (1.8-8.9); NEUTROPHILS % (AUTO) 77.4 % (43.0-81.0); PLATELET COUNT (AUTO) 367 /CMM (150-450); RDW COEFFICIENT OF VARIATION 15.2 (11.5-15.0); RED BLOOD CELL COUNT(AUTO) 3.37 MIL/uL (4.5-6.0); WHITE BLOOD COUNT (AUTO) 9.3 K/uL (4.3-11.0)
[2016-08-13 08:28] LABS: CALCIUM, SERUM 8.4 mg/dL (8.5-10.1); CREATININE 0.9 mg/dL (0.6-1.3); MAGNESIUM 1.5 mg/dL (1.8-2.4); POTASSIUM 4.1 mmol/L (3.5-5.1)
[2016-08-13] MEDS ORDERED: IV NS 0.9% 250 ML IV ONE (10:22)
[2016-08-13] MEDS ORDERED: SECONDARY IV SET 1 EA INFUS.SET MC ONE (10:24)
[2016-08-13] MEDS: Magnesium 1GM/D5W 100ML PREMIX 100 ML IV SCH ×2 (10:36→12:32)
[2016-08-13] MEDS ORDERED: PERMETHRIN 1% TP ONE (14:00)
[2016-08-13] MEDS ORDERED: PERMETHRIN 5% CRM 60 GM TUBE TP ONE (14:00)
--- NOTE | 2016-08-13 14:30 | NUR ---
RN NOTE CARRIED OUT ORDER FOR ELIMITE CREAM AND LICE SHAMPOO.
[2016-08-13 16:00] VITALS: BP 127/67
--- NOTE | 2016-08-13 19:05 | NUR ---
RN CLOSING NOTE PT STABLE THROUGHOUT SHIFT ALL MEDICATIONS AND MD ORDERS CARRIED OUT. ALL TX DONE PT KEPT CLEAN AND DRY. REPOSITIONED AND TURNED. SAFETY MEASURES IN PLACE. REPORT WILL BE GIVEN TO PM NURSE FOR ALTA.
[2016-08-13 20:00] VITALS: BP 128/68
[2016-08-13] MEDS: ENOXAPARIN SODIUM 40 MG/0.4 ML DISP.SYRIN SQ SCH (20:29)
[2016-08-14 04:00] VITALS: BP 134/84
--- NOTE | 2016-08-14 06:30 | NUR ---
MS RN CLOSING NOTE PT REMAINED STABLE DURING SHIFT. BED IN LOWEST POSITION, BRAKES ON AND BED ALARM ON. ALL NEEDS ATTENDED TO PROMPTLY. ALL SAFETY MEASURES IN PLACE. WILL ENDORSE TO NEXT SHIFT FOR ALTA.
[2016-08-14 06:31] LABS: CALCIUM, SERUM 8.3 mg/dL (8.5-10.1); CREATININE 1.1 mg/dL (0.6-1.3); MAGNESIUM 1.8 mg/dL (1.8-2.4); POTASSIUM 4.5 mmol/L (3.5-5.1)
[2016-08-14 06:34] LABS: BASOPHILS % (AUTO) 0.2 % (0.0-2.0); EOSINOPHILS # (AUTO) 0.2 /CMM (0.0-0.7); EOSINOPHILS % (AUTO) 1.7 % (0.0-6.0); HEMATOCRIT 30 % (39-51); HEMOGLOBIN 9.8 g/dL (13.5-17.5); LYMPHOCYTES # (AUTO) 1.2 /CMM (0.8-4.8); LYMPHOCYTES % (AUTO) 10.2 % (20.0-44.0); MEAN CORPUSCULAR HEMOGLOBIN 29 PG (26.0-33.0); MEAN CORPUSCULAR HGB CONC 33 g/dl (31.0-36.0); MEAN CORPUSCULAR VOLUME 90 fL (80-96); MONOCYTES # (AUTO) 0.9 /CMM (0.1-1.30); MONOCYTES % (AUTO) 7.3 % (2.0-12.0); NEUTROPHILS # (AUTO) 9.8 /CMM (1.8-8.9); NEUTROPHILS % (AUTO) 80.6 % (43.0-81.0); PLATELET COUNT (AUTO) 342 /CMM (150-450); RDW COEFFICIENT OF VARIATION 15.4 (11.5-15.0); RED BLOOD CELL COUNT(AUTO) 3.33 MIL/uL (4.5-6.0); WHITE BLOOD COUNT (AUTO) 12.1 K/uL (4.3-11.0)
--- NOTE | 2016-08-14 07:25 | NUR ---
RN INTIAL NOTE RECEIVED REPORT FORM PM NURSE PT A/OX1 SERBIAN SPEAKING, CONFUSED. URINAL 300ML CLEAR YELLOW URINE. NC 2L NO C/O OF ACUTE SOB. IV VLADIMIR MIDLINE @TKO PATENT AND FLUSHED. REPOSITIONED FOR SAFETY AND COMFORT. PT KEEP WARM CLEAN AND DRY. COMPLAINED OF HEADACHE 11/07 NORCO GIVEN.BED RAILS UP, BED LOW AND LOCKED CALL LIGHT WITH IN REACH. WILL CONTINUE TO MONITOR CLOSELY.
[2016-08-14] MEDS: HYDROCODONE/APAP 5/325MG 1 EACH TABLET PO PRN (07:58)
[2016-08-14 08:00] VITALS: BP 118/73
[2016-08-14] MEDS: SULFAMETH/TRIMETH 800/160 MG 1 UDTAB TABLET PO SCH (08:00)
--- NOTE | 2016-08-14 09:51 | NUR ---
CHARGE NURSE NOTES PT STATES HE WAS ITCHY YESTERDAY BUT FEELS BETTER SINCE LAST NIGHT. STATES HE FEELS MUCH BETTER NOW. NO LICE SEEN.
--- NOTE | 2016-08-14 15:28 | NUR ---
PT REMOVED OFF OF ISOLATION. COMPLETED TX FOR LICE AND SCABIES.
[2016-08-14 16:00] VITALS: BP 153/66
--- NOTE | 2016-08-14 18:03 | NUR ---
RN NOTE CALLED NATASHA QUINTERO [phone] AND GAVE REPORT TO SARAH BENTLEY TRANSPORT ANALYST. ANSWER ALL QUESTIONS. DISCHARGE PACKET COMPLETED INCLUDES DR TENA AND OR INFORMATION.
--- NOTE | 2016-08-14 18:35 | NUR ---
RN ENDING NOTE REPORT GIVEN TO PM NURSE. A/O X1 . PT ON 2L NC. PT KEPT CLEAN AND DRY. VLADIMIR MIDLINE FLUSHED AND PATENT TKO NO INFILTATION NOTED. BEDRAIL UP, BED LOW AND LOCKED CALL LIGHT WITH IN REACH. ALL MEDICATIONS GIVEN. ALL SAFETY MEASURE IN PLACE. REPORT ENDORSED FOR ALTA.
--- NOTE | 2016-08-14 19:05 | NUR ---
RN NOTE CALLED NATASHA QUINTERO [phone] AND GAVE REPORT TO SARAH BENTLEY INCUBATOR OPERATOR. ANSWER ALL QUESTIONS. DISCHARGE PACKET COMPLETED INCLUDES DR TENA AND OR INFORMATION. ALL MD ORDERS CARRIED OUT, ALL MEDICATIONS GIVEN, PT HAS ALL BELONGINGS WIHT HIM IN A BAG, BELONGINGS LIST SIGNED AND WITH PT, ALL DISCHARGE INSTRUCTIONS GIVEN AND WITH EMT, REPORT GIVEN TO EMT, PHOTOS WERE TAKEN YESTERDAY 08/13/16, PT REFUSED TO RETAKE PHOTOS, IV AND NAME BAND REMOVED, PT KEPT CLEAN AND DRY, ALL TREATMENTS CARRIED OUT. PT LEFT VIA EMT
[2016-08-14] MEDS ORDERED: ENOXAPARIN SODIUM 40 MG/0.4 ML DISP.SYRIN SQ SCH (21:00)
== END 2016-08-14 19:05 | DRG 853 ==
LOC: ER 15:23 → TELE-TD 19:28 → MEDSG1 08-05 10:05
PROVIDERS: ADMIT Nurse Practitioner Acute Care; ATTEND Nurse Practitioner Acute Care
PROC: 0QS706Z Reposition Left Upper Femur with Intramedullary Internal Fixation Device, Open Approach (ICD-10-PCS; principal; 2016-08-06 17:00)
PROC: 30233N1 Transfusion of Nonautologous Red Blood Cells into Peripheral Vein, Percutaneous Approach (ICD-10-PCS; 2016-08-07)
PROC: 05H633Z Insertion of Infusion Device into Left Subclavian Vein, Percutaneous Approach (ICD-10-PCS; 2016-08-07)
DX: A41.9 Sepsis, unspecified organism (principal); I21.4 Non-ST elevation (NSTEMI) myocardial infarction; S72.142A Displaced intertrochanteric fracture of left femur, initial encounter for closed fracture; R65.21 Severe sepsis with septic shock; J69.0 Pneumonitis due to inhalation of food and vomit; N17.0 Acute kidney failure with tubular necrosis; L03.115 Cellulitis of right lower limb; L03.116 Cellulitis of left lower limb; E44.0 Moderate protein-calorie malnutrition; I48.92 Unspecified atrial flutter; E87.2 Acidosis; B86 Scabies; E87.6 Hypokalemia; R29.6 Repeated falls; Z59.0 Homelessness; I48.91 Unspecified atrial fibrillation; D63.8 Anemia in other chronic diseases classified elsewhere; E11.9 Type 2 diabetes mellitus without complications; E83.42 Hypomagnesemia; E88.09 Other disorders of plasma-protein metabolism, not elsewhere classified; K62.89 Other specified diseases of anus and rectum; M40.40 Postural lordosis, site unspecified; X58.XXXA Exposure to other specified factors, initial encounter; Y93.9 Activity, unspecified; Y92.9 Unspecified place or not applicable; Y99.9 Unspecified external cause status; N18.9 Chronic kidney disease, unspecified; B85.0 Pediculosis due to Pediculus humanus capitis; C44.300 Unspecified malignant neoplasm of skin of unspecified part of face
CPT/HCPCS: 36415; 70450-TC; 71010-TC; 72125-TC; 72192-TC; 73020; 80048-TC; 80053-TC; 80061-TC; 80076-TC; 80202-TC; 81000-TC; 82140-TC; 82728-TC; 83540-TC; 83605-TC; 83735-TC; 84100-TC; 84443-TC; 84484-TC; 85025-TC; 85730-TC; 86850-TC; 86921-TC; 87040-TC; 87081-TC; 87086-TC; 93307-TC; 93970-TC; 94799-TC; 97001-TC; 97110-TC; 97530-TC; A4606; A6209; A6253; A6402; A6403; C1713; G0480; G6039-TC; J0690; J1100; J1644; J1650; J1885; J2250; J2370; J2405; J2543; J2704; J2916; J3010; J3370; J3475; J3480; J3490; J7030; J7050; J7060; P9016-BL; Q0163; Z7610